=== PATIENT | male | born 1940 | race Caucasian/White ===

== ENCOUNTER → 2018-08-07 | Outpatient (REF) | payer MEDICARE, BC ==
[~2018-08-07] MED LIST: ALLOPURINOL300 MG PO; ATORVASTATIN CA40 MG PO; B-12500 MC1 PO; BABY ASPIRIN81 MG PO; BILBERRY PO; COQ-1010 MG PO; DOXAZOSIN4 M1 PO; FISH OIL1000 MG PO; GABAPENTIN800 MG PO; GLIPIZIDE10 M1 PO; LISINOPRIL5 MG PO; METFORMIN1000 MG PO; MULTIVITAM10 PO; NOVOLOG MIX100 U/ML SC; PLAVIX75 MG PO; RANITIDINE150 M1 PO; SAW PALMETTO80 MG PO; VITAMIN B6250 MG PO; VITAMIN D32000 UNIT PO; ZOCOR PO
[2018-08-07 09:38] LABS: URINE BILIRUBIN - DIPSTICK NEGATIVE (NEGATIVE); URINE BLOOD DIPSTICK NEGATIVE (NEGATIVE); URINE COLOR YELLOW; URINE GLUCOSE - DIPSTICK NEGATIVE (NEGATIVE); URINE KETONE NEGATIVE (NEGATIVE); URINE LEUK ESTERASE NEGATIVE (NEGATIVE); URINE NITRITE - DIPSTICK NEGATIVE (Negative); URINE PH 5.5 (4.5-8.0); URINE PROTEIN - DIPSTICK NEGATIVE (NEG-TRACE); URINE SPECIFIC GRAVITY 1.025; URINE UROBILINOGEN - DIPSTICK 0.2 E.U./dL (0.2)
[2018-08-07 09:43] LABS: HEMATOCRIT 30.5 % (39.0-50.0); HEMOGLOBIN 9.8 g/dl (14.0-18.0); MEAN CELL VOLUME 112.1 fL CALC (80.0-100.0); MEAN CORPUSCULAR HGB CONC 32.1 g/L CALC (32.0-36.0); RED BLOOD COUNT 2.72 mill/uL (4.70-6.10); RED CELL DISTRI WIDTH 15.1 % (11.5-15.5)
[2018-08-07 10:12] LABS: ALBUMIN 3.8 g/dL (3.2-5.0); ALKALINE PHOSPHATASE 71 u/l (38-126); ANION GAP 11 (6-22 (CALC)); BILIRUBIN, TOTAL 0.8 mg/dL (0.0-1.4); BUN 28 mg/dL (8-23); BUN/CREATININE RATIO 15 (12-20 (CALC)); CALCULATED LDLCHOLESTEROL 47 mg/dL (62-129 (CALC)); CARBON DIOXIDE 25 mmol/l (22-30); CHLORIDE 112 mmol/l (95-108); CHOLESTEROL HDL RATIO 2.5 (<4.4 (CALC)); CREATININE 1.9 mg/dL (0.7-1.3); GFR 34 ML/MIN (>=60 (CALC)); GFR FOR AFR.AMER. 42 ML/MIN (>=60 (CALC)); HDL CHOLESTEROL 46 mg/dL (>=40); POTASSIUM 4.8 mmol/l (3.5-5.1); SGOT/AST 28 u/l (19-48); SODIUM 143 mmol/l (137-146); TOTAL CHOLESTEROL 116 mg/dl (0-199); TOTAL PROTEIN 5.9 g/dL (6.3-8.2); TOTAL TRIGLYCERIDES 115 mg/dl (30-149); VLDL CHOLESTROL 23 mg/dl (0-38 (CALC))
== END | disposition home or self-care (01) ==
LOC: LAB 09:03
PROVIDERS: ATTEND Internal Medicine
DX: D53.1 Other megaloblastic anemias, not elsewhere classified (principal); E11.42 Type 2 diabetes mellitus with diabetic polyneuropathy; E78.2 Mixed hyperlipidemia; G62.0 Drug-induced polyneuropathy; I10 Essential (primary) hypertension; N18.3 Chronic kidney disease, stage 3 (moderate)

== ENCOUNTER 2020-05-22 14:06 | Inpatient (IN) | payer MEDICARE, BC ==
[~2020-05-22] VITALS: Ht 170.2 cm; Wt 83.0 kg
[~2020-05-22 14:06] MED LIST changes: +ALLOPURINOL100 MG PO; -ALLOPURINOL300 MG PO; -DOXAZOSIN4 M1 PO; +DOXAZOSIN8 M1 PO; +GABAPENTIN600 MG PO; -GABAPENTIN800 MG PO; -NOVOLOG MIX100 U/ML SC; +NOVOLOG100 UNIT/M SC
--- NOTE | 2020-05-22 14:10 | NUR ---
PATIENT TO ROOM VIA WHEELCHAIR AND PHYSICIAN NOTIFIED OF PATIENT STATUS
[2020-05-22 15:04] LABS: HEMATOCRIT 31.1 % (39.0-50.0); HEMOGLOBIN 10.3 g/dl (14.0-18.0); IMMATURE GRANULOCYTES 0.3 % (0.0-5.0); MEAN CELL VOLUME 105.4 fL CALC (80.0-100.0); MEAN CORPUSCULAR HGB 34.9 pG CALC (26.0-32.0); MEAN CORPUSCULAR HGB CONC 33.1 g/dL CAL (32.0-36.0); NEUT# 5.59 thou/uL (1.82-7.42); RED BLOOD COUNT 2.95 mill/uL (4.70-6.10)
--- NOTE | 2020-05-22 15:14 | NUR ---
EDGAR XRAY COMPLETED, PT RESTING VISITOR REMAINS AT BEDSIDE, IV INTACT
[2020-05-22 15:16] LABS: ACT PARTIAL THROMBO TIME 24.1 SECONDS (20.0-32.5); INTERNATIONAL NORMALIZED RATIO 1.1 RATIO (0.7-1.3); PROTHROMBIN TIME 10.9 SECONDS (9.0-12.5)
[2020-05-22 15:17] LABS: ALBUMIN 3.9 g/dL (3.2-5.0); CREATININE 2.3 mg/dL (0.7-1.3); POTASSIUM 4.4 mmol/l (3.5-5.1); TOTAL PROTEIN 6.9 g/dL (6.3-8.2)
[2020-05-22 15:32] LABS: BILIRUBIN, TOTAL 1.1 mg/dL (0.0-1.4)
[2020-05-22 15:47] LABS: TSH, 3RD GENERATION 1.05 uIU/mL (0.47 - 4.68)
--- NOTE | 2020-05-22 16:18 | NUR ---
PT AWARE OF NEED FOR URINE SPECIMEN AND PLANNED ADMISSION RELATED TO POSITIVE COVID ANTIGEN, NO COMPLAINTS OFFERED, NO S/S OF DISTRESS NOTED, CALL PÉREZ WITHIN REACH
[2020-05-22 16:27] LABS: C-REACTIVE PROTEIN 24.9 mg/dL (0-0.9)
--- NOTE | 2020-05-22 16:27 | NUR ---
URINAL PROVIDED FOR PT AWARE OF NEED FOR URINE SPECIMEN
--- NOTE | 2020-05-22 16:55 | NUR ---
REPORT CALLED TO RIGO PALUMBO
--- NOTE | 2020-05-22 16:57 | NUR ---
RECIEVED REPORT FROM ROMIE MCKEON
[2020-05-22 17:30] LABS: URINE BILIRUBIN - DIPSTICK NEGATIVE (NEGATIVE); URINE BLOOD DIPSTICK MODERATE (NEGATIVE); URINE COLOR YELLOW; URINE GLUCOSE - DIPSTICK NEGATIVE (NEGATIVE); URINE KETONE NEGATIVE (NEGATIVE); URINE LEUK ESTERASE NEGATIVE (NEGATIVE); URINE NITRITE - DIPSTICK NEGATIVE (Negative); URINE PROTEIN - DIPSTICK 30 mg/dL (NEG-TRACE); URINE UROBILINOGEN - DIPSTICK 0.2 E.U./dL (0.2)
[2020-05-22 17:35] LABS: URINE EPITHELIAL CELLS FEW EPI/hpf (0-FEW); URINE MUCUS MODERATE hpf (NONE-FEW)
--- NOTE | 2020-05-22 17:40 | NUR ---
PT ARRIVED TO [facility] ROOM 290 VIA PORTABLE IN STABLE CONDITION ACCOMPAINED BY ROMIE MCKEON. PT AMBULATED TO BED WITH STEADY GAIT. INTRODUCED SELF TO PT AND DISCUSSED POC. PT IS A/O X3 AND ABLE TO VOICE NEEDS. ASSESSMENT AND VITALS COMPLETED.TEMP 99.2, TYLENOL TO BE ADMINISTERED. BP 138/59, HR 78, O2 94% ON ROOM AIR. RESPIRATIONS AR EVEN AND UNLABORED . HEART RHYTHM NORMAL WITH TELE IN PLACE,SR PER ER MONITORING. BOWEL SOUNDS ACTIVE IN ALL QUADRANTS, LAST REPORTED BM 05/21/2020. PT REPORTS HAVING DIARREHA. RADIAL AND PEDAL PULSES STRONG. #22G IN LAC FLUSHED, SITE APPEARS HEALTHY AND PATENT. IVF STARTED PER ORDER. SKINS IS WARM DRY AND INACT WITH NO BREAKDOWN NOTED. PT DENIES ANY PAIN OR DISCOMFORTS AT THIS TIME. PT DENIES ALLERGIES, ALLERGY AND FALL RISK BAND APPLIED. PT STATES HE HAD A GOLD NECKLACE DOWN IN ER, NO NECKLACE PRESENT AT THIS TIME. ER CALLED AND ASSISTANT VICE PRESIDENT INFORMED THAT PT GAVE TO VISITOR DOWN IN ER ROOM. PT REMEMBERED. PT DENIES ANY ADDITIONAL NEEDS AT THIS TIME. ALL SAFETY PRECAUTIONS ARE IN PLACE WIHT CALL LIGHT IN REACH. ENCOURAGED PT TO CALL FOR ASSISTANCE. AIR/CONTACT PRECAUTIONS IN PLACE. WILL CONTINUE TO MONITOR
--- NOTE | 2020-05-22 17:42 | NUR ---
PT TRANSPORTED TO MED SURG VIA WHEELCHAIR, WITH ALL BELONGINGS SENT WITH PT. ACCEPTING NURSE DEEJAY AT BEDSIDE ON ARRIVAL
[2020-05-22 17:46] VITALS: BP 138/59
[2020-05-22 19:45] VITALS: BP 142/60
--- NOTE | 2020-05-22 20:05 | NUR ---
PHYSICAL ASSESMENT COMPLETE. PT CURRENTLY DENIES PAIN OR DISCOMFORT. SCHEDULED MEDICATIONS AND PRN MEDICATION ADMINISTERED, SEE E-MAR. PT DENIES ANY NEEDS AT THIS TIME. PLAN OF CARE REVIEWED, PT DENIES QUESTIONS, VERBALIZES UNDERSTANDING. ITEMS WITHIN REACH, BED LOCKED IN LOW POSITION W/ BEDRAILS UP X2. CALL PÉREZ WITHIN REACH, AGREES TO CALL PRN.
[2020-05-23] VITALS (22 sets, daily range): BP systolic 120–185; BP diastolic 56–121
--- NOTE | 2020-05-23 00:05 | NUR ---
PT LAYING IN BED WITH EYES CLOSED, APPEARS TO BE SLEEPING, APPEARS COMFORTABLE AND IN NO DISTRESS. RESPIRATIONS REGULAR AND UNLABORED. ITEMS REMAIN WITHIN REACH, CALL PÉREZ REMAINS WITHIN REACH. BED REMAINS LOCKED AND IN LOW POSITION WITH BEDRAILS UP X2. WILL CONTINUE TO MONITOR.
--- NOTE | 2020-05-23 00:25 | NUR ---
ED SENIOR MANAGER MERGERS & ACQUISITIONS REPORTS PTS HR RATE AT SINUS MACIE 32.
--- NOTE | 2020-05-23 02:21 | NUR ---
ED ENGINEERING MECHANIC REPORTS PTS HR HAS DROPPED TO SINUS MACIE 37. WOKE UP PT. PT STATE HE IS FINE.
--- NOTE | 2020-05-23 05:32 | NUR ---
PT RESTING IN BED, NO SIGNS OF DISTRESS NOTED, RESP EVEN AND UNLABORED. ED ORTHODONTIC BAND MAKER REPORT PT IS SINUS MACIE AT A RATE OF 38. VOICES NO NEEDS OR COMPLAINTS AT THIS TIME. CALL LIGHT IN REACH, CONTINUE TO MONITOR.
[2020-05-23 06:20] LABS: HEMATOCRIT 31.7 % (39.0-50.0); HEMOGLOBIN 10.6 g/dl (14.0-18.0); IMMATURE GRANULOCYTES 0.2 % (0.0-5.0); MEAN CELL VOLUME 104.6 fL CALC (80.0-100.0); MEAN CORPUSCULAR HGB CONC 33.4 g/dL CAL (32.0-36.0); NEUT# 3.5 thou/uL (1.82-7.42); RED BLOOD COUNT 3.03 mill/uL (4.70-6.10)
[2020-05-23 06:44] LABS: POTASSIUM 4.5 mmol/l (3.5-5.1)
[2020-05-23 06:45] LABS: D-DIMER 2.33 mg/L (0.19-0.60)
[2020-05-23 06:46] LABS: CREATININE 1.7 mg/dL (0.7-1.3); POTASSIUM 4.6 mmol/l (3.5-5.1)
[2020-05-23 06:47] LABS: TOTAL PROTEIN 5.5 g/dL (6.3-8.2)
--- NOTE | 2020-05-23 06:48 | NUR ---
PT CONTINUED TO MACIE DOWN TO A LOW OFA HR OF 29. CCALLED DR DANIEL AND GOT ORDERS FOE EKG, LAB DRAWS POTASSIUM AND MAG. GLUCOSE 279. EKG SHOWED SINUS MACIE HR 36. LABS PENDING. ORDER PER DR DANIEL TO TRANSFER TO ICU. PT TRANSFERED AT 0648.
--- NOTE | 2020-05-23 07:05 | NUR ---
report received from Harshal Echeverria RN; awaiting pt arrival
--- NOTE | 2020-05-23 07:28 | NUR ---
male pt received to ICU bed 2 via bed accompanied by Raoul Rowan LPN and Adalid Echeverria RN in stable condition; bedside update received; assessment completed at this time; pt alert and oriented; denies pain; no n/v noted; pt denies dizziness, faint feeling, chest pain; resp even and unlabored; lungs clear bilat; skin color wnl; ra; hr reg; strong pulses; no edema noted; sb 40s on monitor; abd soft/ distended with bs present; no bm noted per news writer; no urine to inspect at this time; #22 patent to lac with ivf/ zithromax infusing without complication; no redness or edema noted at site; plan of care/ am meds/ reasoning for transfer explained; call light within reach; will continue;
[2020-05-23 07:50] LABS: ACT PARTIAL THROMBO TIME 27.6 SECONDS (20.0-32.5)
--- NOTE | 2020-05-23 08:05 | NUR ---
awake in bed; no apparent distress noted; pt offers no complaints; sb 50s on monitor; iv intact and patent; call light within reach; will continue to monitor
--- NOTE | 2020-05-23 08:46 | NUR ---
Dr Mixon present at bedside to assess pt and discuss plan of care
--- NOTE | 2020-05-23 10:02 | NUR ---
awake on cell phone; no apparent distress noted; pt offers no complaints; iv intact and patent; no redness or edema noted at site; sr 55 on monitor; call light within reach; will continue to monitor
--- NOTE | 2020-05-23 12:00 | NUR ---
awake in bed; no apparent distress noted; resp even and unlabored; iv intact and patent; sb on monitor; call light within reach; will continue to monitor
--- NOTE | 2020-05-23 13:50 | NUR ---
call placed to Sallie Giordano as per request; passcode verified; update provided
--- NOTE | 2020-05-23 14:08 | NUR ---
sb 57 on monitor; no apparent distress noted; iv intact and patent; will continue to monitor
--- NOTE | 2020-05-23 15:40 | NUR ---
Dr Mixon notified of 21 beat vtach; pt asymptomatic; no orders received; k+ and mag reviewed; will continue to monitor
--- NOTE | 2020-05-23 16:15 | NUR ---
awake in bed; offers no complaints; no apparent distress; sb on monitor; iv intact and patent; no redness or edema noted at site; pt inquiring of long acting insulin; states he takes "Lantus 80 units at bedtime"; will notify ;
--- NOTE | 2020-05-23 17:51 | NUR ---
awake in bed; offers no complaints; sr on monitor; eating dinner; no distress noted; iv intact and patent; call light within reach
--- NOTE | 2020-05-23 20:00 | NUR ---
PT HAD JUST FINISHED DINNER AND IS WATCHING TV IN HIGH FOWLERS POSITION. PT HAS NO COMPLAINTS OF PAIN OR DISCOMFORT. HIS BP WAS SLIGHTLY ELEVATED 155/79 AND LOW HR 58, NURSED ASKED IS A NORMAL SITUATION FOR HIM HE STATED "NO NOT ANYMORE". NURSE ASKED SO THIS IS NOT THE FIRST TIME, "NO IT HASN'T HAPPENED IN A LONG TIME". REASSURED PT THAT WE WERE HERE TO HELP GET IT RESOLVED. ALSO EDUCATED HIM THAT IF WHILE HE IS SLEEPING HIS O2 SAT DROPS WE WOULD HAVE TO PUT SOME OXYGEN ON HIM WHILE HE WAS SLEEPING. PT VERBALIZED UNDERSTANDING.
--- NOTE | 2020-05-23 22:04 | NUR ---
PT RESTING IN BED TALKING ON HIS CELL PHONE. NO S/S OF DISTRESS. CALL LIGHT WITHIN REACH.
--- NOTE | 2020-05-23 23:03 | NUR ---
NOTIFIED DR. DANIEL THAT PT IS EXPERIENCING ELEVATED BP WITH REQUEST OF ANTI-HYPERTENSIVE PRN MEDICATION. PT IS EXPERIENCING SLIGHT SOB BUT DENIES ANY OTHER S/S OF DISTRESS. APPLIED MI AT FOR SUPPORTIVE MEASURES. AWAITING RESPONSE FROM
[2020-05-24] VITALS (22 sets, daily range): BP systolic 126–212; BP diastolic 58–84
--- NOTE | 2020-05-24 00:30 | NUR ---
PT RESTING IN BED WITHOUT S/S OF DISTRESS. ADMINISTERED NORVASC AND HYDRALAZINE PER DR. ORDER. WITHIN 15 MINS BP HAD DECREASED TO 160/69. PT TOLERATING 2L NC WELL O2 AT 95%, COMPARED TO WITHOUT HE WAS AT 88-92%. WILL CONTINUE TO MONITOR.
--- NOTE | 2020-05-24 02:10 | NUR ---
PT AWAKENED BY SEVERE ACID REFLUX/INDIGESTION. CONTACTED DR. DANIEL FOR MEDICATION. DR ASKED FOR TROPONINS AND ORDERED MYLANTA. TROP DRAWN WNL 0.030, AND MYLANTA ADMINISTERED. PT RESTING IN BED HAVING SOME DEEP COUGHING SPELLS. BP AND HR ELEVATED O2 88-90% INCREASED O2 TO 4L. EDUCATED TO TRY TO SLOW HIS BREATHING TO TAKE DEEPER BREATHS. NURSE ASKED IF PT WAS HAVING ANY PAIN IN CHEST, ARM, NECK OR SHOULDER HE DENIES. ONLY SAYS HE HAS HEARTBURN. WILL CONTINUE TO MONITOR.
--- NOTE | 2020-05-24 04:00 | NUR ---
PT WAS TRYING TO GET OUT OF BED, AGITATED THINKING TV WAS ON. HOWEVER HE KEEPS READING THE MUSEUM REGISTRAR ON THE WALL THINKING IT WAS THE TV. INCREASED CONFUSION, ASSESSED NEURO AND WAS WNL. BP WAS INCREASED AGAIN AND HR ELEVATED, CHECKED TEMP AND IT WAS 101.[address] DANIEL WAS NOTIFIED OF TEMP AND INCREASED AGITATION. ORDERED ATIVAN TO CALM HIM. CONTINUOUS REDIRECTION NEEDED. KEEPS TRYING TO TAKE PROBES, TELE, AND BP CUFF OFF AND GET OUT OF BED, HOWEVER IS A&O TO PERSON, PLACE, AND TIME.
[2020-05-24 05:12] LABS: HEMATOCRIT 30.1 % (39.0-50.0); HEMOGLOBIN 10.2 g/dl (14.0-18.0); IMMATURE GRANULOCYTES 1.1 % (0.0-5.0); MEAN CELL VOLUME 102.7 fL CALC (80.0-100.0); MEAN CORPUSCULAR HGB 34.8 pG CALC (26.0-32.0); MEAN CORPUSCULAR HGB CONC 33.9 g/dL CAL (32.0-36.0); NEUT# 8.44 thou/uL (1.82-7.42); RED BLOOD COUNT 2.93 mill/uL (4.70-6.10); RED CELL DISTRI WIDTH 13.6 % (11.5-15.5)
[2020-05-24 05:55] LABS: BILIRUBIN, TOTAL 0.7 mg/dL (0.0-1.4); POTASSIUM 4.3 mmol/l (3.5-5.1); TOTAL PROTEIN 5.4 g/dL (6.3-8.2)
--- NOTE | 2020-05-24 05:55 | NUR ---
PT RESTING AWAKE IN BED. CONFUSION INCREASING, THINKS HE IS IN [place] THIS MORNING AND WANTS TO GO GOLFING. REDIRECTED PT THAT HE WAS IN [place] AT HOSPITAL. ADMINISTERED ATIVAN SHORT TIME AGO TO RELAX PT. HE IS TIL TRYING TO PULL PROBES AND TELE OFF. NURSE EDUCATES PT THAT HE NEEDS TO LEAVE THESE ITEMS ON SO WE CAN MONITOR HIS HEART AND OXYGEN, STOPS FOR A MINUTE AND THEN TRIED AGAIN. WILL UPDATE MORNING STAFF OF SITUATION AND FORD CONTINUE TO MONITOR.
--- NOTE | 2020-05-24 07:20 | NUR ---
pt resting in bed with eyes closed; no apparent distress noted; easily aroused to verbal stimulation; assessment completed at this time; pt alert to person only; states he's on the side of the road; states the month as Jun,; denies pain; no n/v noted; resp even and unlabored; lungs clear/ diminished bases; skin color wnl; o2 per nc at 2L; sleeping car service attendant cough noted; hr reg; strong pulses; no edema noted; sr/pvc on monitor; abd soft with bs present; no bm noted per bond writer; no urine to inspect at this time; urinal at bedside; #22 to lac patent with ivf infusing without complication; no redness or edema noted at site; plan of care/ am meds/ covid prec explained; pt drowsy; bed alarm set for pt safety; call light within reach; will continue to monitor
--- NOTE | 2020-05-24 07:35 | NUR ---
alarm sounding; pt noted attempting to get out of bed; pt very confused; pt refusing to get back in bed; pt attempting to pull off monitoring attachments; pt stating "I need to get to the hospital"; reorientation unsuccessful; pt has pulled out iv to lac; catheter tip noted intact; #20 started x1 attempt to rh; staff remains at bedside for safety; o2 titrated to 3: o2 sat 88-89%; pt deny home o2 use; will continue to monitor
--- NOTE | 2020-05-24 08:04 | NUR ---
pt resting in bed with eyes closed; no apparent distress noted; sr on monitor; iv intact and patent; bed alarm activated for pt safety; call light within reach; will continue to monitor
--- NOTE | 2020-05-24 09:15 | NUR ---
alarm sounding; pt out of bed; very confused; pt has removed all monitoring attachments; iv intact and patent; lg urinary incont noted; am meds explained and admnistered with complication; pt declining breakfast; maew; follow commands; will continue to monitor
--- NOTE | 2020-05-24 09:52 | NUR ---
awake; bed alarming; pt on side of bed; large urinary incont noted; bed bath and linens changed; pt remins confused; iv intact and patent; monitoring attachments reapplied; bed alarm set for pt safety; will continue to monitor closely
--- NOTE | 2020-05-24 10:10 | NUR ---
Dr Mixon present at bedside to assess pt and discuss plan of care;
--- NOTE | 2020-05-24 12:01 | NUR ---
pt awake in bed; confusion continues (MD aware on rounds); event planner present at bedside to attempt to get pt to eat/ feed pt; iv intact and patent; no redness or edema noted at site; sr on monitor; call light within reach; will continue to monitor
--- NOTE | 2020-05-24 12:27 | NUR ---
awake; pt has removed all monitoring attachments and attempting to climb out of bed; o2 reapplied; iv intact and patent; staff at bedside to reposition; will continue to monitor
--- NOTE | 2020-05-24 12:50 | NUR ---
call placed to sister at [phone]; update provided; sister informed of confusion and need to place pt in restraints due to removing essential monitoring attachments and oxygen; agree with restraints; will continue to monitor
--- NOTE | 2020-05-24 12:55 | NUR ---
Dr Mixon notified of pt continuously removing o2 and monitoring attachment; pt continues to attempt to climb out of bed; orders received and on chart
--- NOTE | 2020-05-24 13:50 | NUR ---
awake climbing out of bed; continues to remove front desk monitor and o2; pt desats to 80s without o2; iv intact; medicated for agitation; will continue to monitor
--- NOTE | 2020-05-24 14:25 | NUR ---
son called this customs entry writer; able to verify birthdate; update provided;
--- NOTE | 2020-05-24 16:10 | NUR ---
awake in bed; pt has managed to removed right arm from restraints; pt has removed monitoring attachments and o2; o2 sat 85%; o2 reapplied at 3L nc; urinal offers; no noted incont of urine; complete bath and linens changed at this time; pt requesting to speak with Carolina; Carolina called from pt's cell phone as per request; update provided; underwriter mortgage loan offers to call Emma; pt declined for this underwriter mortgage loan to call her stating "she's way in [facility]"; repositioned for comfort; pt continues with confusion but staff able to reorient; sr on monitor; iv intact and patent; no redness or edema noted at site; will continue to monitor
--- NOTE | 2020-05-24 16:31 | NUR ---
call placed to Jaquelin Xie per this creative writer passcode verified; update provided; daughter Jaquelin angela pt is in restraints due to continous removal of o2; will continue to monitor
--- NOTE | 2020-05-24 17:13 | NUR ---
pt noted with both legs over the right side of bed; pt has removed pulse ox probe; repositioned in bed; po fluids provided; pt denies neesd for commode or urinal; iv intact; will continue to monitor
--- NOTE | 2020-05-24 17:50 | NUR ---
awake in bed; pt has pulled of pulse ox probe; restraints released for meal; o2 re-applied; denies bed for toileting; call light within reach; bed alarm set for pt safety
--- NOTE | 2020-05-24 19:45 | NUR ---
ASSESSMENT COMPLETED. PT. IS A/AO AT THIS TIME, BUT UNAWARE OF WHAT HOSPITAL HE IS IN; IV SITE PATENT AND ORDERED IVF INFUSING WELL. UPDATED ON POC. SR ON STREETCAR DISPATCHER;PT. HAD REMOVED OXYGEN AND SPO2 DOWN TO 87% ON RA AND REAPPLIED O2 AND INCREASED TO 91%. CALLED BEST FRIEND OF PT."PENNY" AND PT. SPEAKING WITH HER AT THIS TIME. RESTRAINTS IN PLACE DUE TO PT. REMOVED OXYGEN AND PULLING AT TUBING. CALL LIGHT IS IN REACH. WILL CONTINUE TO MONITOR.
--- NOTE | 2020-05-24 21:10 | NUR ---
RESTRAINTS REMOVED PT. IS A/A/O X3 AND AGREED TO NOT REMOVE CORDS/LINES AT THIS TIME AFTER POC EXPLAINED WELL NEED FOR OXYGEN; WILL CONTINUE TO MONITOR.
--- NOTE | 2020-05-24 22:16 | NUR ---
PT. IS SLIGHTLY AGGITATED AND RESTLESS; MEDICATED WITH ORDERED PRN ATIVAN; WILL REASSESS. BED ALARM ON FOR SAFETY PRECAUIONS. CALL LIGHT IS IN REACH.
--- NOTE | 2020-05-24 23:00 | NUR ---
SPOKE WITH SISTER,MARIA LUZ, AND UPDATED HER ON PT..
--- NOTE | 2020-05-24 23:27 | NUR ---
PT. HAD 11 BEAT RUN OF V-TACH AND IS ASYMPTOMATIC; DENIES CP.
[2020-05-25] VITALS (19 sets, daily range): BP systolic 103–179; BP diastolic 47–82
--- NOTE | 2020-05-25 00:26 | NUR ---
TEMP OF 100.3; MEDICATED WITH ORDERED PRN TYLENOL; WILL REASSESS; PT. DENIES FURTHER NEEDS. CALL LIGHT IS IN REACH. WILL CONTINUE TO MONITOR.
--- NOTE | 2020-05-25 01:40 | NUR ---
TEMP RECHECKED 100.1; PT. HAD REMOVED O2 WELL B/P CUFF AND RE-APPLIED; PT. RE-EDCUATED AGAIN ON NEED FOR LEAVING THOSE IN PLACE.
--- NOTE | 2020-05-25 03:15 | NUR ---
PT. HAD REMOVED HEART MONITOR,O2, WELL B/P CUFF; PT. REMINDED TO LAVE ALL TUBINGS AND OXYGEN IN PLACE; WILL NEED RE-INFORCEMENT; WILL CONTINUE TO MONITOR. TEMP 99.4; HR SR 63; WILLL CO NTINUE TO MONITOR. CALL LIGHT IS IN REACH. BED ALARM ON.
[2020-05-25 04:51] LABS: HEMATOCRIT 29.5 % (39.0-50.0); HEMOGLOBIN 10.1 g/dl (14.0-18.0); MEAN CELL VOLUME 102.8 fL CALC (80.0-100.0); MEAN CORPUSCULAR HGB 35.2 pG CALC (26.0-32.0); MEAN CORPUSCULAR HGB CONC 34.2 g/dL CAL (32.0-36.0); NEUT# 6.7 thou/uL (1.82-7.42); RED BLOOD COUNT 2.87 mill/uL (4.70-6.10)
--- NOTE | 2020-05-25 05:09 | NUR ---
PT. SLIGHTLY ANXIOUS AND REMOVED HEART MONITOR AND B/P CUFF; REAPPLIED; AND MEDICATED WITH ORDERED IV ATIVAN; WILL REASSESS. CLEANED OF AN INCONTINENCE OF URINE; ROSI CARE GIVEN AND NEW BRIEF APPLIED. BED ALARM ON. TEMP 98.9.
[2020-05-25 05:15] LABS: ALBUMIN 2.8 g/dL (3.2-5.0); BILIRUBIN, TOTAL 0.6 mg/dL (0.0-1.4); CREATININE 1.7 mg/dL (0.7-1.3); POTASSIUM 4.5 mmol/l (3.5-5.1); TOTAL PROTEIN 5.3 g/dL (6.3-8.2)
--- NOTE | 2020-05-25 07:20 | NUR ---
PT LAYING IN BED. A&O X3 (PT UNABLE TO STATE ).O2 VIA NC @3L WITH O2% 86-88%, O2 TITRATED TO 4L, O2 % SUSTAINING 92-93%. LOW GRADE TEMP 99.1, COVERS TAKEN OFF PATIENT. TRACE EDEMA NOTED TO BLE. PT DENIES ANY PAIN AT THIS TIME. BED ALARM IN PLACE FOR SAFETY. CALL LIGHT IN REACH. CONTINUE TO MONITOR.
--- NOTE | 2020-05-25 07:56 | NUR ---
DR ESCOBAR AND Adalid MOROCHO SURGICAL RN AT BEDSIDE DISCUSSING POC
--- NOTE | 2020-05-25 09:38 | NUR ---
TEMP 100.4, TYLENOL GIVEN. WILL REASSESS TEMP
--- NOTE | 2020-05-25 10:53 | NUR ---
PT LAYING IN BED. NO DISTRESS NOTED. TEMP REASSESSED, TEMP 98.0. PT CHANGED FOR INCONTINENCE. NO OTHER NEEDS AT THIS TIME. BED ALARM IN PLACE FOR SAFETY. CALL LIGHT IN REACH. CONTINUE TO MONITOR.
--- NOTE | 2020-05-25 11:27 | NUR ---
OFFICE OF DR HERNANDEZ NOTIFIED ABOUT PTS CARDIOLOGY CONSULT.
--- NOTE | 2020-05-25 12:54 | NUR ---
MOVED PT UP IN BED WITH THE ASSISTANCE OF JACKSON GRUBBS. O2 REAPPLIED. SET UP PT FOR LUNCH, ENCOURAGED PT TO EAT. OFFERED PT ASSISTANCE, PT REFUSED. CALL LIGHT IN REACH. BED ALARM PLACED FOR SAFETY. CALL LIGHT IN REACH. CONTINUE TO MONITOR.
--- NOTE | 2020-05-25 14:08 | NUR ---
PT ENCOURAGED TO CONSUME MEAL. PLACED IN HIGH FOWLERS POSITION, PT ATTEMPTING TO EAT LUNCH. CONTINUE TO MONITOR.
--- NOTE | 2020-05-25 16:22 | NUR ---
ASSISTED PT WITH URINAL. 250 ML OF CLEAR YELLOW URINE NOTED. PT PLACED IN HIGH FOWLERS POSITION. CALL LIGHT IN REACH, BED ALARM IN PLACE. CONTINUE TO MONITOR.
--- NOTE | 2020-05-25 18:30 | NUR ---
PT SITTING IN BED EATTING DINNER. CALL LIGHT IN REACH. BED ALARM PLACED FOR SAFETY. CONTINUE TO MONITOR.
--- NOTE | 2020-05-25 20:00 | NUR ---
REPORT GIVEN BY LYNNE. PATIENT IN BED WATCHING TV, ALERT AND ORIENTED. RESP EVEN AND UNLABORED, 4L VIA NC. SB ON TELE.IV INFUSING NS @ KVO. PLAN OF CARE DISCUSSED. PATIENT INFORMED TO CALL WITH ANY QUESTIONS OR CONCERNS. FALL AND SAFTEY PRECAUTIONS IN PLACE. HOURLY ROUNDING PERFORMED.
--- NOTE | 2020-05-25 22:00 | NUR ---
PATIENT IN BED WATCHING TV. NO S/S OF DISTRESS NOTED. FALL AND SAFTEY PRECAUTIONS IN PLACE.
[2020-05-26] VITALS (20 sets, daily range): BP systolic 118–165; BP diastolic 56–92
--- NOTE | 2020-05-26 | NUR ---
PATIENT IN BED WITH EYES CLOSED. RESP EVEN AND UNLABORED. NO S/S OF DISTRESS NOTED. FALL AND SAFTEY PRECAUTIONS IN PLACE.
--- NOTE | 2020-05-26 05:22 | NUR ---
PATIENT ATTEMPTING TO GET OUT OF BED, ALARMING SOUNDING. NURSING STAFF PERFORMED FULL LINEN CHANGE AND BED BATH. FALL AND SAFTEY PRECAUTIONS IN PLACE.
[2020-05-26 06:30] LABS: HEMOGLOBIN 11.1 g/dl (14.0-18.0); IMMATURE GRANULOCYTES 0.7 % (0.0-5.0); MEAN CELL VOLUME 104.1 fL CALC (80.0-100.0); MEAN CORPUSCULAR HGB CONC 33.6 g/dL CAL (32.0-36.0); NEUT# 8.11 thou/uL (1.82-7.42); RED BLOOD COUNT 3.17 mill/uL (4.70-6.10); RED CELL DISTRI WIDTH 14.2 % (11.5-15.5)
[2020-05-26 07:03] LABS: ALKALINE PHOSPHATASE 102 u/l (38-126); ANION GAP 10 (6-22 (CALC)); BILIRUBIN, TOTAL 0.6 mg/dL (0.0-1.4); BUN 42 mg/dL (8-23); BUN/CREATININE RATIO 24 (12-20 (CALC)); CARBON DIOXIDE 25 mmol/l (22-30); CHLORIDE 112 mmol/l (95-108); CREATININE 1.7 mg/dL (0.7-1.3); GFR 39 ML/MIN (>=60 (CALC)); GFR FOR AFR.AMER. 47 ML/MIN (>=60 (CALC)); POTASSIUM 4.7 mmol/l (3.5-5.1); SGOT/AST 366 u/l (19-48); SODIUM 142 mmol/l (137-146); TOTAL PROTEIN 5.5 g/dL (6.3-8.2)
--- NOTE | 2020-05-26 07:08 | NUR ---
PT SITTING IN BED WATCHING TV. A&O X3. NO DISTRESS NOTED. PT REPORTS TO BE FEELING WELL THIS MORNING. O2 VIA NC @4L IN PLACE WITH OXYGEN LEVEL SUSTAINING 90-93%. CLEAR BREATH SOUNDS UPON AUSCULATION WITH DIMINISHED BREATH SOUNDS AT LUNG BASES. URINAL AT BEDSIDE WITH 100 ML OF CLEAR YELLOW URINE NOTED. BROOD STATION MANAGER COUGH NOTED. TRACE EDEMA TO BILATERAL FEET. NO NEEDS AT THIS TIME. ASSESSMENT COMPLETED. DISCUSSED POC. CALL LIGHT IN REACH. CONTINUE TO MONITOR.
[2020-05-26 07:30] LABS: C-REACTIVE PROTEIN 17.1 mg/dL (0-0.9)
--- NOTE | 2020-05-26 07:37 | NUR ---
DR ESCOBAR AT BEDSIDE DISCUSSING POC
--- NOTE | 2020-05-26 08:00 | NUR ---
ECHO US CELL OPERATOR AT BEDSIDE FOR ECHOCARDIOGRAM
--- NOTE | 2020-05-26 11:21 | NUR ---
ASSISTED PT UP TO CHAIR, PT WEAK, TOLERATED TRANSFER WELL. O2 VIA NC @4L IN PLACE. PT ENCOURAGED TO PRESS CALL LIGHT WHEN WANTING TO GET UP. URINAL AND ESSENTIAL ITEMS PLACED AT THE SIDE OF THE CHAIR. CALL LIGHT WITHIN REACH. CONTINUE TO MONITOR.
--- NOTE | 2020-05-26 13:32 | NUR ---
PT SITTING IN CHAIR. NO DISTRESS NOTED. O2% SUSTAINING 95%. CALL LIGHT IN REACH. CONTINUE TO MONITOR.
--- NOTE | 2020-05-26 13:55 | NUR ---
PT ASSISTED BACK INTO BED. CALL LIGHT PLACED WITHIN REACH. CONTINUE TO MONITOR.
--- NOTE | 2020-05-26 20:02 | NUR ---
WRITTEN REPORT RECEIVED. ASSUMED PT CARE.
--- NOTE | 2020-05-26 21:01 | NUR ---
PT MEDICATED ORDERED. NO APPARENT DISTRESS NOTED. PT ALERT AND ORIENTED. DENIES ANY PAIN OR DISCOMFORT. 02 SAT 93% ON 4L/M VIA NC. DIABETIC SNACK PROVIDED. MONITORS IN PLACE. IV SITE APPEARS HEALTHY. NO CURRENT WANTS OR NEEDS. CALL LIGHT WITHIN REACH. WILL CONTINUE TO MONITOR.
--- NOTE | 2020-05-26 23:17 | NUR ---
PT C/O INDIGESTION, PRN MYLANTA ADMINISTERED. O2 SATS 88% ON 4L/M VIA NC. REPOSITIONED IN BED AND HOB ELEVATED. ENCOURAGED DEEP BREATHING AND USE OF IS. PT VERBALIZED UNDERSTANDING. SAT NOW UP TO 90%. PT DENIES ANY OTHER CURRENT WANTS OR NEEDS. CALL LIGHT WITHIN REACH. WILL CONTINUE TO MONITOR.
[2020-05-27] VITALS (13 sets, daily range): BP systolic 123–175; BP diastolic 58–84
--- NOTE | 2020-05-27 01:32 | NUR ---
O2 SATS DROPPED TO 80%-82% O2 INCREASED AND REPOSITIONED WITHOUT EFFECT. RT AT BEDSIDE. HIGHFLOW SLOWLY INCREASES WITHOUT MUCH IMPROVEMENT. ON 15L/M HIGH FLOW WITH SAT OF 92%. ENCOURAGED DEEP BREATHING EXERCISES. NO APPARENT DISTRESS NOTED. PT RESPIRATIONS EVEN AND UNLABORED. PT REMAINS ALERT AND ORIENTED. CALL LIGHT WITHIN REACH. MONITORS IN PLACE. WILL CONTINUE TO MONITOR.
--- NOTE | 2020-05-27 03:20 | NUR ---
PT RESTING IN BED WITH EYES CLOSED. NO APPARENT DISTRESS NOTED. REMAINS ON 15L HIGH FLOW SATING 96%. RESPIRATIONS EVEN AND UNLABORED. CALL LIGHT WITHIN REACH. MONITORS IN PLACE. WILL CONTINUE TO MONITOR.
--- NOTE | 2020-05-27 05:26 | NUR ---
BOX SEALING INSPECTOR IN ROOM TO OBTAIN LABS.
[2020-05-27 07:05] LABS: ALBUMIN 2.7 g/dL (3.2-5.0); BILIRUBIN, TOTAL 0.7 mg/dL (0.0-1.4); CREATININE 1.5 mg/dL (0.7-1.3)
--- NOTE | 2020-05-27 09:00 | NUR ---
PT SEEN AWAKE, ALERT, ORIENTED X 3, RESTS IN THE BED IN NO DISTRESS. LUNGS CLEAR BUT DIMINISHED THROUGHOUT, 15 LPM NC. PT SEEN BY DR DANIEL, LASIX DOSE PROVIDED PER ORDER. PT DENIES CP OR SOB.
[2020-05-27 10:18] LABS: HEMATOCRIT 33.6 % (39.0-50.0); MEAN CELL VOLUME 104.3 fL CALC (80.0-100.0); MEAN CORPUSCULAR HGB 34.2 pG CALC (26.0-32.0); MEAN CORPUSCULAR HGB CONC 32.7 g/dL CAL (32.0-36.0); NEUT# 7.57 thou/uL (1.82-7.42); RED BLOOD COUNT 3.22 mill/uL (4.70-6.10); RED CELL DISTRI WIDTH 14.1 % (11.5-15.5)
[2020-05-27 10:57] LABS: ALBUMIN 2.9 g/dL (3.2-5.0); BILIRUBIN, TOTAL 0.7 mg/dL (0.0-1.4); CREATININE 1.5 mg/dL (0.7-1.3); TOTAL PROTEIN 5.4 g/dL (6.3-8.2)
--- NOTE | 2020-05-27 12:41 | NUR ---
GOOD OUTPUT NOTED FROM LASIX. PT RESTS IN THE BED, NO DISTRESS, NO COMPLAINTS.
--- NOTE | 2020-05-27 16:06 | NUR ---
PT'S DAUGHTER CALLED, WAS ABLE TO SPEAK WITH PT. PT REMAINS BEFORE, NO CHANGE IN STATUS. OXYGEN WAS 15 LPM, NOW BACK DOWN TO 10 LPM WITH ACCEPTABLE SATS IN THE LOW 90s.
--- NOTE | 2020-05-27 19:00 | NUR ---
REPORT FROM HALIMA GRUBBS. ASSUMED PT CARE.
--- NOTE | 2020-05-27 20:02 | NUR ---
ASSESSMENT COMPLETE. PT ALERT AND ORIENTED. NO APPARENT DISTRESS NOTED. DENIES ANY PAIN OR DISCOMFORT. ON 10L/M VIA HIGHFLOW NC, O2 SAT 95. MONITORS IN PLACE. IV SITE APPEARS HEALTHY. NO CURRENT WANTS OR NEEDS. CALL LIGHT WITHIN REACH. WILL CONTINUE TO MONITOR.
--- NOTE | 2020-05-27 20:54 | NUR ---
RN ON SHIFT IN ROOM TO MEDICATE PT ORDERED. DIABETIC SNACK PROVIDED.
--- NOTE | 2020-05-27 23:22 | NUR ---
PT RESTING IN BED WITH EYES CLOSED. NO APPARENT DISTRESS NOTED. REMAINS ON 10L HIGH FLOW SATING 96%. RESPIRATIONS EVEN AND UNLABORED. CALL LIGHT WITHIN REACH. MONITORS IN PLACE. WILL CONTINUE TO MONITOR.
[2020-05-28] VITALS (10 sets, daily range): BP systolic 111–142; BP diastolic 58–80
--- NOTE | 2020-05-28 01:46 | NUR ---
PT RESTING IN BED WITH EYES CLOSED. NO APPARENT DISTRESS NOTED. RESPIRATIONS EVEN AND UNLABORED. MONITORS IN PLACE. 02 @ 10L/M VIA HIGHFLOW NC, SATS 93%. VSS. CALL LIGHT WITHIN REACH. WILL CONTINUE TO MONITOR.
--- NOTE | 2020-05-28 03:11 | NUR ---
PT RESTING IN BED WITH EYES CLOSED. NO APPARENT DISTRESS NOTED. RESPIRATIONS EVEN AND UNLABORED. MONITORS IN PLACE. 02 @ 10L/M VIA HIGHFLOW NC, SATS 96%. VSS. CALL LIGHT WITHIN REACH. WILL CONTINUE TO MONITOR.
[2020-05-28 05:19] LABS: HEMATOCRIT 33.3 % (39.0-50.0); HEMOGLOBIN 10.9 g/dl (14.0-18.0); IMMATURE GRANULOCYTES 1.4 % (0.0-5.0); MEAN CELL VOLUME 102.5 fL CALC (80.0-100.0); MEAN CORPUSCULAR HGB 33.5 pG CALC (26.0-32.0); MEAN CORPUSCULAR HGB CONC 32.7 g/dL CAL (32.0-36.0); NEUT# 7.38 thou/uL (1.82-7.42); RED BLOOD COUNT 3.25 mill/uL (4.70-6.10)
--- NOTE | 2020-05-28 05:35 | NUR ---
COMPLETE ASSISTED BED BATH AND LINEN CHANGE PROVIDED. PT SAT UP AT BEDSIDE AT THIS TIME. TOLERATED WELL. REPOSITIONED IN BED. MONITORS REPLACED. PT DENIES ANY CURRENT WANTS OR NEEDS. CALL LIGHT WITHIN REACH. WILL CONTINUE TO MONITOR.
[2020-05-28 05:47] LABS: ALBUMIN 2.8 g/dL (3.2-5.0); BILIRUBIN, TOTAL 0.7 mg/dL (0.0-1.4); C-REACTIVE PROTEIN 7.6 mg/dL (0-0.9); CREATININE 1.6 mg/dL (0.7-1.3); POTASSIUM 4.6 mmol/l (3.5-5.1); TOTAL PROTEIN 5.2 g/dL (6.3-8.2)
--- NOTE | 2020-05-28 08:48 | NUR ---
PT SITTING IN BED. O2 VIA NC @10L HIGH FLOW WITH O2 SUSTAINING 90-92%. PT DENIES ANY SOB OR PAIN AT THIS TIME. IS DEVICE AT BEDSIDE, PT DEMONSTRATES PROPER USE OF DEVICE. GOAL SET AT 2500ML, PT ACHIEVING 2000 ML X10 REPITITIONS. LUNG SOUNDS CLEAR/DIMINISHED. 300 ML OF CLEAR URINE NOTED IN URINAL. CALL LIGHT PLACED IN REACH. ASSESSMENT COMPLETED. DISCUSSED POC. CALL LIGHT IN REACH. CONTINUE TO MONITOR.
--- NOTE | 2020-05-28 09:37 | NUR ---
PT ASSISTED TO BSC. CALL LIGHT IN REACH. CONTINUE TO MONITOR.
--- NOTE | 2020-05-28 10:49 | NUR ---
[facility] AT BEDSIDE
--- NOTE | 2020-05-28 11:30 | NUR ---
PT SITTING IN RECLINER. NO DISTRESS NOTED. CALL LIGHT LEFT WITHIN REACH. CONTINUE TO MONITOR.
--- NOTE | 2020-05-28 17:15 | NUR ---
PT SITTING IN BED WATCHING TV. NO DISTRESS NOTED. CALL LIGHT IN REACH. CONTINUE TO MONITOR.
--- NOTE | 2020-05-28 19:02 | NUR ---
REPORT FROM SILVESTRE GRUBBS. ASSUMED PT CARE.
--- NOTE | 2020-05-28 20:13 | NUR ---
ASSESSMENT COMPLETE. PT ALERT AND ORIENTED. NO APPARENT DISTRESS NOTED. DENIES ANY PAIN OR DISCOMFORT. ON 10L/M VIA HIGHFLOW NC, O2 SAT 96. MONITORS IN PLACE. IV SITE APPEARS HEALTHY, DISCUSSED EXPIRATION DATE AND NEW SITE NEEDED PT VERBALIZED UNDERSTANDING. NO CURRENT WANTS OR NEEDS. CALL LIGHT WITHIN REACH. WILL CONTINUE TO MONITOR.
--- NOTE | 2020-05-28 22:50 | NUR ---
X1 ATTEMPT TO START NEW IV SITE AT THIS TIME WITH NO SUCCESS. WILL ATTEMPT TO HAVE ANOTHER NURSE TRY WHEN AVAILABLE. CURRENT IV SITE APPEARS HEALTHY AND FLUSHES WELL.
--- NOTE | 2020-05-28 23:14 | NUR ---
SISTER MARIA LUZ CALLED FOR UPDATE PASSCODE PROVIDED TO NURSE. UPDATE PROVIDED.
[2020-05-29] VITALS (14 sets, daily range): BP systolic 104–157; BP diastolic 52–71
--- NOTE | 2020-05-29 | NUR ---
PATIENT RESTING IN BED. PATIENT WITH NO SIGNS OF DISTRESS. PATIENT VITALS STABLE. PATIENTS BED ALARM ON. NO CHANGES TO NC. WILL CONTINUE TO MONITOR.
--- NOTE | 2020-05-29 00:03 | NUR ---
NEW IV SITE OBTAINED BY RN ON SHIFT X1 ATTEMPT. PT TOLERATED WELL. OLD IV SITE REMOVED WITH CATH INTACT.
--- NOTE | 2020-05-29 04:15 | NUR ---
PT FOUND OOB, PT REMOVING ALL MONITORS AND O2. ENCOURAGED PT TO GET BACK INTO BED AND REAPPLY O2 AND MONITOR, PT REFUSED AND INSISTED AMBULATING TO BATHROOM. PT AMBULATED WITH ASSISTANCE. PT VOIDED WITHOUT DIFFICULTY. SOB WITH EXERTION, RESPIRATIONS SHALLOW AND LABORED. ASSISTED PT BACK INTO BED, O2 AND MONITORS REAPPLIED. O2 SAT 85%, DEEP BREATHING ENCOURAGED. 02 INCREASED TO 12L/M VIA HIGHFLOW AT THIS TIME. BED ALARM SET FOR SAFETY AND CALL LIGHT WITHIN REACH. WILL CONTINUE TO MONITOR.
--- NOTE | 2020-05-29 06:25 | NUR ---
PT SATS MAINTAINING 95-96%. 02 TITRATED BACK DOWN TO 10L/M VIA HIGHFLOW NC. NO APPARENT DISTRESS NOTED. RESPIRATIONS EVEN AND UNLABORED. PT DENIES ANY PAIN OR DISCOMFORT. CALL LIGHT WITHIN REACH. WILL CONTINUE TO MONITOR.
--- NOTE | 2020-05-29 06:45 | NUR ---
REPORT RECEIVED FROM TIEN PALUMBO. CARE ASSUMED.
[2020-05-29 07:24] LABS: ALBUMIN 2.8 g/dL (3.2-5.0); BILIRUBIN, TOTAL 0.8 mg/dL (0.0-1.4); CREATININE 1.5 mg/dL (0.7-1.3); POTASSIUM 5.1 mmol/l (3.5-5.1); TOTAL PROTEIN 5.3 g/dL (6.3-8.2)
--- NOTE | 2020-05-29 07:30 | NUR ---
PT RESTING IN BED AWAKE. PT IS ALERT AND OREINTED X3. PT SCOOTED DOWN IN BED. O2 SATS NOTED TO BE 85-88% ON 15L HI URMILA NC. ASSISTED PT IN MOVING UP AND REPOSITIONING IN BED. SHIFT ASSESSMENT COMPLETED AT THIS TIME. IV PATENT X1. CALL LIGHT IN REACH. WILL CONTINUE TO MONITOR.
--- NOTE | 2020-05-29 08:02 | NUR ---
DR DANIEL AT BEDSIDE AT THIS TIME
--- NOTE | 2020-05-29 08:43 | NUR ---
RADIOLOGY AT BEDSIDE FOR PORTABLE CXR
--- NOTE | 2020-05-29 10:00 | NUR ---
PHYSICAL THERAPY AT BEDSIDE AT THIS TIME.
--- NOTE | 2020-05-29 11:43 | NUR ---
PT SET UP FOR NOON MEAL AT THIS TIME.
--- NOTE | 2020-05-29 11:58 | NUR ---
PT note Patient is able to get OOB to chair with CGA of 1. His vitals remained stable. He was able to march in place 20 reps with o2 and sats remained >90% Am Pac score is 14 indicating he would do well with home health
--- NOTE | 2020-05-29 12:21 | NUR ---
PT RESTING IN BED WATCHING TV. RESP ARE EVEN AND UNLABORED. NO DISTRESS NOTED. CALL LIGHT IN REACH. WILL CONTINUE TO MONITOR.
--- NOTE | 2020-05-29 15:14 | NUR ---
PATIENT LAYS IN [place]. RESTS WITH EYES CLOSED. NO ACUTE DISTRESS SHOWN. O2 100% ON 15 H FL H. NC, WILL START WEANING. CALL LIGHT WITHIN REACH.
--- NOTE | 2020-05-29 15:45 | NUR ---
PATIENT'S O2 WAS WEANED FROM 15 L/MIN TO 10 L/MIN SLOWLY, O2 SAT 96%. PATIENT IS AWAKE, WAS EXPLAINED O2 WEANING, NO ACUTE DISTRESS SHOWN. CALL LIGHT WITHIN REACH.
--- NOTE | 2020-05-29 16:35 | NUR ---
KRISTYN MAY IN ROOM TO OBTAIN ACCUCHECK.
--- NOTE | 2020-05-29 16:41 | NUR ---
PATIENT'S O2 SAT 88%, LAYS [place], DENIES SOB. O2 TITRATED TO 12 L/MIN, O2 SAT NOW 90%-91%. I.S. ENCOURAGED, ABLE TO REACH TO 1750.
--- NOTE | 2020-05-29 17:16 | NUR ---
2 UNITS OF INSULIN GIVEN. PATIENT TOLERATES WELL.
--- NOTE | 2020-05-29 19:54 | NUR ---
RECEIVED REPORT FROM AM NURSE. PATIENT CURRENTLY IN BED. PATIENT VITALS STABLE. PATIENT IN NO DISTRESS. WILL CONTINUE TO MONITOR.
--- NOTE | 2020-05-29 22:00 | NUR ---
BED BATH PROVIDED. PATIENT CONTINUES IN BED. VITALS STABLE. PATIENT USING URINAL. NO SIGNS OF DISTRESS. CONTINUES WITH HIGH FLOW NASAL CANNULA. WILL CONTINUE TO MONITOR. BED ALARM ON.
[2020-05-30] VITALS (11 sets, daily range): BP systolic 116–152; BP diastolic 59–99
--- NOTE | 2020-05-30 02:00 | NUR ---
PATIENT SLEEPING. PATIENT WITH NO SIGNS OF DISTRESS. AFEBRILE. VOIDING IN URINAL. WILL CONTINUE TO MONITOR.
--- NOTE | 2020-05-30 04:45 | NUR ---
REPORT RECEIVED FROM RISHABH GRUBBS. CARE ASSUMED.
--- NOTE | 2020-05-30 05:44 | NUR ---
PT RESTING IN BED WITH EYES CLOSED. RESP ARE EVEN AND UNLABORED. NO DISTRESS NOTED. CALL LIGHT IN REACH. WILL CONTINUE TO MONITOR.
[2020-05-30 05:48] LABS: HEMOGLOBIN 11.2 g/dl (14.0-18.0); IMMATURE GRANULOCYTES 2.7 % (0.0-5.0); MEAN CELL VOLUME 102.5 fL CALC (80.0-100.0); MEAN CORPUSCULAR HGB 34.8 pG CALC (26.0-32.0); MEAN CORPUSCULAR HGB CONC 33.9 g/dL CAL (32.0-36.0); NEUT# 10.93 thou/uL (1.82-7.42); RED BLOOD COUNT 3.22 mill/uL (4.70-6.10); RED CELL DISTRI WIDTH 13.6 % (11.5-15.5)
[2020-05-30 05:57] LABS: ALBUMIN 2.8 g/dL (3.2-5.0); BILIRUBIN, TOTAL 0.9 mg/dL (0.0-1.4); C-REACTIVE PROTEIN 4.5 mg/dL (0-0.9); CREATININE 1.4 mg/dL (0.7-1.3); POTASSIUM 4.6 mmol/l (3.5-5.1); TOTAL PROTEIN 5.4 g/dL (6.3-8.2)
--- NOTE | 2020-05-30 06:50 | NUR ---
PAIENT IS AWAKE, WAS JUST GIVEN A BED BATHE, HOB 30 DEGREES. NURSE ASSESSMENT PERFORMED. R-HAND 22 G IV INTACT, NS IV FLUIDS INFUSING AT 10 ML/HR. SB/SR ON TELEMETRY WITH 1ST DEGREE AV BLOCK. NON PRODUCTIVE COUGH. 175 ML OF URINE EMPTIED FROM URINAL. NO COMPLAINTS OR NEEDS AT THIS TIME. CALL LIGHT WITHIN REACH.
--- NOTE | 2020-05-30 07:41 | NUR ---
PATIENT SITS UP IN [place] IS EATING BREAKFAST AND KWATCHING TV. NO ACUTE DISTRESS SHOWN.
--- NOTE | 2020-05-30 08:50 | NUR ---
PATIENT TALKS ON THE PHONE. NO ACUTE DISTRES SHOWN.
--- NOTE | 2020-05-30 09:23 | NUR ---
PATIENT ABLE TO SWALLOW AM MEDS, NO ACUTE DISTRES SHOWN. O2 SAT 92% ON 12 L/MIN HIGH FLOW H.
--- NOTE | 2020-05-30 10:28 | NUR ---
PATIENT RESTS WITH EYES CLOSED. O2 SAT 97%.
--- NOTE | 2020-05-30 12:24 | NUR ---
PATIENT IS IN [place] EATS WITH NO DIFFICULTY, PATIENT REPORTS HE IS NOT HUNGRY, WAS ENCOURAGED TO EAT TO HELP HIM HEAL. CALL LIGHT WITHIN REACH.
--- NOTE | 2020-05-30 14:39 | NUR ---
PATIENT LAYS WITH HOB 30 DEGREES. RESTS WITH EYES CLOSED. ON 12 L/MIN HIGH FLOW, O2 SAT 98%. CALL LIGHT WITHIN REACH.
--- NOTE | 2020-05-30 16:02 | NUR ---
blood pressure cuff readjusted. patient in no acute distress, uses urinal. requests iced water, will provide.
--- NOTE | 2020-05-30 16:42 | NUR ---
3 UNITS OF INSULIN GIVEN PER BLOOD SUGAR, PATIENT TOLERATES WELL. NO ACUTE DISTRESS SHOWN, WATCHES TV. HIGH FLOW NC H WAS WEANED FROM 12 L/MIN TO 10 L/MIN. O2 SAT 96%. NO COMPLAINTS OR NEEDS AT THIS TIME. CALL LIGHT WITHIN REACH.
--- NOTE | 2020-05-30 18:22 | NUR ---
PATIENT LAYS IN [employer]. ASSISTED WITH CUTTING HIS CHICKEN. HE IS ABLE TO MIX SUGAR TO HIS ICED TEA. NO ACUTE DISTRESS SHOWN. DID SPILL WATER FROM HIS PITCHER, WAS CLEANED UP. NO NEEDS OR COMPLAINTS AT THIS TIME. CALL LIGHT WITHIN REACH.
--- NOTE | 2020-05-30 20:00 | NUR ---
PT RESTING IN BED AWAKE IN HIGH FOWLERS POSITION. NO COMPLAINT OF PAIN, SOB, AND URINAL WAS EMPTIED. PT ENCOURAGED TO USE INCENTIVE SPIROMETER AND DRINK PLENTY OF FLUIDS. PT VERBALIZED UNDERSTANDING. PT ASKED FOR A SNACK BEFORE HE GOES TO SLEEP. NURSE ACKNOWLEDGED AND EXPLAINED WOULD BE BACK IN ABOUT AN HOUR WITH IT. BELONGINGS AND CALL LIGHT WITHIN REACH. WILL CONTINUE TO MONITOR.
--- NOTE | 2020-05-30 22:00 | NUR ---
PT RESTING IN BED AWAKE WATCHING TV WITHOUT S/S OF DISCOMFORT. PT ASKED FOR ADJUSTMENT OF PILLOW AND LOWERED HOB SLIGHTLY, OTHERWISE CONTENT. WILL CONTINUE TO MONITOR.
--- NOTE | 2020-05-30 23:55 | NUR ---
PT RESTING ON RIGHT SIDE WITHOUT S/S DISCOMFORT. WILL CONTINUE TO MONITOR.
[2020-05-31 02:00] VITALS: BP 125/60
--- NOTE | 2020-05-31 02:00 | NUR ---
PT SLEEPING WITHOUT S/S OF DISTRESS, CURRENTLY ON LEFT SIDE.
--- NOTE | 2020-05-31 03:50 | NUR ---
PT RESTING IN SUPINE POSITION, HAS BEEN TURNING BACK AND FORTH THROUGHOUT THE NIGHT. DOES NOT COMPLAIN OF DISCOMFORT OR SOB. WILL CONTINUE TO MONITOR.
[2020-05-31 03:58] VITALS: BP 141/64
--- NOTE | 2020-05-31 04:04 | NUR ---
PT CONTINUES TO RESTING IN FOWLERS POSITION. DOES NOT SEEM TO BE IN DISCOMFORT. WILL CONTINUE TO MONITOR.
[2020-05-31 06:00] VITALS: BP 145/65
--- NOTE | 2020-05-31 06:00 | NUR ---
PT RESTING N BED WITH EYES OPEN, DENIES ANY DISCOMFORT OR SOB. EMPTIED URINAL AND ENCOURAGED TO DRINK FLUIDS. WILL CONTINUE TO MONITOR.
[2020-05-31 06:14] LABS: HEMOGLOBIN 11.3 g/dl (14.0-18.0); IMMATURE GRANULOCYTES 2.9 % (0.0-5.0); MEAN CORPUSCULAR HGB 34.2 pG CALC (26.0-32.0); MEAN CORPUSCULAR HGB CONC 33.2 g/dL CAL (32.0-36.0); NEUT# 12.76 thou/uL (1.82-7.42); RED BLOOD COUNT 3.3 mill/uL (4.70-6.10); RED CELL DISTRI WIDTH 13.7 % (11.5-15.5)
[2020-05-31 06:24] LABS: CREATININE 1.5 mg/dL (0.7-1.3); POTASSIUM 4.4 mmol/l (3.5-5.1)
--- NOTE | 2020-05-31 07:39 | NUR ---
PT SITTING IN BED EATING BREAKFAST. A&O X3. NO DISTRESS NOTED. O2 @10L HIGH FLOW IN PLACE. O2 % SUSTAINING 90-93%. NO OTHER NEEDS AT THIS. IS DEVICE AT BEDSIDE, PT DEMONSTRATING PROPER USE OF DEVICE. PT ACHIEVING 1500ML, GOAL SET AT 2000 ML. ASSESSMENT COMPLETED. DISCUSSED POC. CALL LIGHT IN REACH. CONTINUE TO MONITOR.
[2020-05-31 08:00] VITALS: BP 139/58
--- NOTE | 2020-05-31 12:00 | NUR ---
PT SLEEPING IN BED. NO DISTRESS NOTED. CONTINUE TO MONITOR.
--- NOTE | 2020-05-31 12:05 | NUR ---
PT SITTING IN BED EATING LUNCH. NO DISTRESS NOTED. CALL LIGHT IN REACH. CONTINUE TO MONITOR.
--- NOTE | 2020-05-31 15:17 | NUR ---
PT SITTING IN BED WATCHING TV. NO DISTRESS NOTED. O2 SUSTAINING 91-93% WITH O2 @10L HIGH FLOW. CALL LIGHT IN REACH. CONTINUE TO MONITOR.
[2020-05-31 16:00] VITALS: BP 128/60
[2020-05-31 20:00] VITALS: BP 147/65
--- NOTE | 2020-05-31 20:00 | NUR ---
PT RESTING IN BED IN HIGH FOWLERS POSITION, RECENTLY FINISHED CONSUMING DINNER. PT EDUCATED ON THE IMPORTANCE OF INCENTIVE SPIROMETER USE. PT DID PROPERLY USE EQUIPMENT WITH NURSE PRESENT. HELPED ADJUST PT IN BED TO BETTTER POSITION AND MOVED BP CUFF TO LEFT ARM FOR COMFORT. PT DENIES PAIN OR SOB, STATES HE IS FEELING A LITTLE BETTER THAN YESTERDAY.
--- NOTE | 2020-05-31 22:00 | NUR ---
PT RESTING IN BED IN HIGH FOWLERS POSITION. PT DID HAVE A PUDDING FOR SNACK AND WATER REFILLED. URINAL WAS EMPTIED AND WAS MEDICATED.
[2020-06-01] VITALS (12 sets, daily range): BP systolic 114–131; BP diastolic 58–80
--- NOTE | 2020-06-01 | NUR ---
PT RESTING IN BED WITH HOB IN HIGH FOWLERS, SEEMS TO BE SLEEPING. NO S/S OF DISCOMFORT.
--- NOTE | 2020-06-01 02:00 | NUR ---
PT REPOSITIONED IN SEMI FOWLERS POSITION AND WARM BLANKET WAS REQUESTED. NO COMPLAINTS OF DISCOMFORT.
--- NOTE | 2020-06-01 04:30 | NUR ---
PT IS SLEEPING WITHOUT SIGNS OF DISTRESS.
--- NOTE | 2020-06-01 05:59 | NUR ---
ROUNDED ON PT, NOTICED O2 WAS SLIGHTLY LOWER THAN USUAL. PT HAD NC SHIFTED WITH ONLY ONE NOSTRIL IN. ADJUSTED NC AND PT SATS BACK TO NORMAL RANGE. WILL CONTINUE TO MONITOR.
--- NOTE | 2020-06-01 06:45 | NUR ---
REPORT RECEIVED FROM Adalid YATES RN. CARE ASSUMED.
--- NOTE | 2020-06-01 07:00 | NUR ---
PT RESTING IN BED AWAKE. PT IS ALERT AND ORIENTED X3. SHIFT ASSESSMENT COMPLETED AT THIS TIME. IV PATENT X1. PATIENT ASSISTED UP TO CHAIR AT THIS TIME. PT TOLERATED WELL. O2 DECREASED TO 8L HIGH URMILA NC AT THIS TIME. PT DID DESAT WITH EXERTION BUT DID RECOVER WELL. CALL LIGHT IN REACH. WILL CONTINUE TO MONITOR.
--- NOTE | 2020-06-01 07:55 | NUR ---
DR CROWE AT BEDSIDE AT THIS TIME.
--- NOTE | 2020-06-01 08:02 | NUR ---
HOLD ON TRANSFER TO [facility] DUE TO OXYGEN REQUIREMENTS
--- NOTE | 2020-06-01 09:26 | NUR ---
PT WAS ASSISTED UP TO BSC BM UNSUCCESSFUL. PT ASSISTED BACK TO CHAIR AT THIS TIME. PT GIVEN MOM AND PRUNE JUICE. INSTRUCTED TO CALL FOR ASSISTANCE. CALL LIGHT IN REACH. WILL CONTINUE TO MONITOR.
--- NOTE | 2020-06-01 09:43 | NUR ---
PHYSICAL THERAPY AT [facility] AT THIS TIME.
--- NOTE | 2020-06-01 10:21 | NUR ---
Patient presents up in bedside chair Nursing staff tells me he has been extraordinarily weak. He is seen for seated ankle pumps, heel presses and chair pushups x 20 reps each. He maintained stable vital signs throughout exercises. He was limited by dyspnea. I spoke further with him about home with home health at discharge and this remains his plan. His Am Pac is 13 indicating he would need intervention if he were to go home in the near future. He actually would do well with short term rehab but insists on home with home health
--- NOTE | 2020-06-01 12:00 | NUR ---
[facility] RESP ARE EVEN AND UNLABORED. NO DISTRESS NOTED. CALL LIGHT IN REACH. WILL CONTINUE TO OMONITOR.
--- NOTE | 2020-06-01 13:51 | NUR ---
LINENS CHANGED. PT ASSISTED FROM CHAIR BACK TO BED TO REST. O2 TO 6L NC. PT O2 SATS >94%. NO DISTRESS NOTED. PT DOES HAVE DYSPNEA ON EXERTION AND WILL DESAT BUT QUICKLY RECOVERS.
--- NOTE | 2020-06-01 16:00 | NUR ---
PT RESTING IN BED AWKAE AND CONVERSING ON CELLPHONE. DAUGHTER CALLED AND REQUESTED AN UPDATE. UPDATE PROVIDED. VSS ON MONITOR. CALL LIGHT IN REACH. WILL CONTINUE TO MONTIOR.
--- NOTE | 2020-06-01 17:24 | NUR ---
DECREASED OXYGEN TO 4L NASAL CANNULA. PT O2 SATS 92%>
--- NOTE | 2020-06-01 18:26 | NUR ---
PT SITTING UP IN BED EATING DINNER. PT DID NOT WANT TO GET OOB FOR DINNER. RESP ARE EVEN AND UNLABORED. NO DISTRESS NTOED. WHILE EATING O2 SATS REMAINS >92% ON 4L. CALL YOLIE IN REACH. WILL CONTINUE TO JONES
--- NOTE | 2020-06-01 20:00 | NUR ---
PT RESTING IN BED AWAKE IN HIGH-FOWLERS POSITION, WITHOUT S/S OF DISCOMFORT. ASSESSMENT COMPLETE, PT MEDICATED, AND REFILLED REFRESHMENTS. BELONGINGS AND CALL LIGHT WITHIN REACH. BED IN LOWEST POSITION. O2 PROBE WAS REPLACED DUE TO IN ACCURATE READINGS.
[2020-06-01 20:27] LABS: IMMATURE GRANULOCYTES 1.6 % (0.0-5.0); MEAN CELL VOLUME 103.4 fL CALC (80.0-100.0); MEAN CORPUSCULAR HGB 34.5 pG CALC (26.0-32.0); MEAN CORPUSCULAR HGB CONC 33.3 g/dL CAL (32.0-36.0); NEUT# 14.16 thou/uL (1.82-7.42); RED BLOOD COUNT 3.19 mill/uL (4.70-6.10); RED CELL DISTRI WIDTH 13.7 % (11.5-15.5)
[2020-06-01 20:45] LABS: ALBUMIN 2.9 g/dL (3.2-5.0); BILIRUBIN, TOTAL 0.9 mg/dL (0.0-1.4); CREATININE 1.5 mg/dL (0.7-1.3); TOTAL PROTEIN 5.5 g/dL (6.3-8.2)
[2020-06-01 21:04] LABS: C-REACTIVE PROTEIN 6.4 mg/dL (0-0.9)
[2020-06-01 21:10] LABS: POTASSIUM 5.6 mmol/l (3.5-5.1)
--- NOTE | 2020-06-01 22:00 | NUR ---
PT RESTING IN BED AWAKE, WATCHING TV. NO S/S OF DISTRESS. WILL CONTINUE TO MONITOR.
--- NOTE | 2020-06-01 23:03 | NUR ---
PT'S SISTER MARIA LUZ CALLED TO SEE HOW PT WAS DOING. NURSE REPORTED NO PERTINENT INFORMATION, THERE WAS NO CHANGES RECENTLY. THAT HE WAS DOING WELL BUT STILL WEAK.
[2020-06-02] VITALS (17 sets, daily range): BP systolic 105–152; BP diastolic 53–91
--- NOTE | 2020-06-02 | NUR ---
PT SLEEPING WITHOUT S/S OF DISCOMFORT. WILL CONTINUE TO MONITOR.
--- NOTE | 2020-06-02 02:00 | NUR ---
PT SLEEPING ON RIGHT SIDE. NO SIGNS OF DISTRESS. O2 SATS DOING WELL ON 4L.
--- NOTE | 2020-06-02 04:00 | NUR ---
PT TURNED BACK TO SUPINE POSITION. NURSE HELPED ADJUST HIS PILLOW. NO COMPLAINT OF PAIN OR SOB.
--- NOTE | 2020-06-02 06:45 | NUR ---
REPORT RECEIVED FROM Adalid YATES RN. CARE ASSUMED.
--- NOTE | 2020-06-02 06:45 | NUR ---
REPORT RECIEVED FROM Adalid YATES RN. CARE ASSUMED.
--- NOTE | 2020-06-02 07:45 | NUR ---
PT RESTING IN BED AWAKE. PT IS ALERT AND ORIENTED X3. SHIFT ASSESSMENT COMPLETED AT THIS TIME. IV PATENT X1. PT ASSISTED UP TO CHAIR AT BEDSIDE FOR AM MEAL. [facility] WILL CONTINUE TO [facility]
--- NOTE | 2020-06-02 07:55 | NUR ---
DR DANIEL AT BEDSIDE AT THIS TIME.
[2020-06-02 08:44] LABS: BILIRUBIN, TOTAL 1.1 mg/dL (0.0-1.4); CREATININE 1.4 mg/dL (0.7-1.3); POTASSIUM 4.7 mmol/l (3.5-5.1); TOTAL PROTEIN 5.7 g/dL (6.3-8.2)
--- NOTE | 2020-06-02 08:45 | NUR ---
PT ASSISTED UP TO BSC FOR BM CALL LIGHT IN REACH. WILL CONTINUE TO MONTIOR.
--- NOTE | 2020-06-02 09:10 | NUR ---
PT ASSISTED BACK TO CHAIR AT BEDSIDE. PT HAD A [facility] FORMED . PT TOLERATED TRANSFER WELL.
--- NOTE | 2020-06-02 09:30 | NUR ---
PHYSICAL THERAPY AT BEDSIDE.
--- NOTE | 2020-06-02 12:06 | NUR ---
PT SITTING UP IN CHAIR EATING LUNCH. RESP ARE EVEN AND UNLABORED NO DISTRESS NOTED. CALL LIGHT IN REACH. WILL CONTINUE TO MONITOR.
--- NOTE | 2020-06-02 14:00 | NUR ---
PT SITTING UP IN CHAIR AT BEDSIDE WATCHING TV. RESP ARE EVEN AND UNLABORED. NO DISTRESS NOTED. CALL LIGHT IN REACH. WILL CONTINUE TO MONITOR.
--- NOTE | 2020-06-02 15:50 | NUR ---
PT SITTING UP IN CHAIR AT BEDSIDE. RESP ARE EVEN AND UNLABORED. NO DISTRESS NOTED. CALL LIGHT IN REACH. WILL CONTINUE TO MONITOR
--- NOTE | 2020-06-02 16:34 | NUR ---
PT ASSISTED BACK TO BED AT THIS TIME. PT DID WELL FOR TRANSFER. CALL LIGHT IN REACH. WILL CO NTINUE TO [facility].
--- NOTE | 2020-06-02 19:15 | NUR ---
REPORT GIVEN BY LYNNE. PATIENT IN BED WITH EYES OPEN WATCHING TV. RESP EVEN AND UNLABORED, OXYGEN IN PLACE. ALERT AND ORIENTED. NO S/S OF DSITRESS NOTED.IV SALINE LOCKED. FALL AND SAFTEY PRECAUTIONS IN PLACE. PATIENT INFORMED TO CALL WITH ANY QUESTIONS OR CONCERNS. PLAN OF CARE DISCUSSED.
--- NOTE | 2020-06-02 22:00 | NUR ---
PATIENT RESTING IN BED WATCHING TV. RESP EVEN AND UNLABORED. NO S/S OF DISTRESS NOTED. FALL AND SATEY PRECAUTIONS IN PLACE.
[2020-06-03] VITALS (16 sets, daily range): BP systolic 118–156; BP diastolic 58–75
--- NOTE | 2020-06-03 00:16 | NUR ---
PATIENT RESTING IN BED WITH EYES CLOSED. RESP EVEN AND UNLABORED. NO S/S OF DISTRESS NOTED. FALL AND SAFTEY PRECAUTIONS IN PLACE.
--- NOTE | 2020-06-03 01:53 | NUR ---
PATIENT ACCIDENTLY TOOK OFF HIS OXYGEN, DESAT INTO LOW 70%. OXYGEN PLACED BY ON PATIENT BY NURSE, SLOW TO RECOVER.
--- NOTE | 2020-06-03 04:24 | NUR ---
NEW IV STARTED DUE TO DATED SITE. D/C IV IN RIGHT HAND. STARTED 22 LEFT HAND. PATIENT PLACED ON NON-REBREATHER FACE MASK DUE TO HIM TAKING OFF HI-FLOW NC.
--- NOTE | 2020-06-03 05:19 | NUR ---
PATIENT O2 SATURATION ABOVE 90%, RT INFORMED. RT IN THE ROOM TALKING TO THE PATIENT ABOUT WEARING THE HI-FLOW NC VS. VENTI MASK. PATIENT HAS REQUESTED TO WEAR THE HI-FLOW NC AND HAS BEEN EDUCATED ABOUT THE IMPORTANCE OF KEEPING THE HI-FLOW NC IN PLACE.
--- NOTE | 2020-06-03 06:45 | NUR ---
REPORT RECEIVED FROM KARAN GRUBBS. CARE ASSUMED.
--- NOTE | 2020-06-03 06:51 | NUR ---
RT AT BEDSIDE FOR ABG
--- NOTE | 2020-06-03 06:52 | NUR ---
RADIOLOGY AT BEDSIDE FOR STAT CXR
--- NOTE | 2020-06-03 07:44 | NUR ---
LAB AT BEDSIDE AT THIS TIME
--- NOTE | 2020-06-03 08:33 | NUR ---
DR DANIEL AT BEDSIDE AT THIS TIME.
[2020-06-03 08:46] LABS: ALBUMIN 2.8 g/dL (3.2-5.0); BILIRUBIN, TOTAL 1.2 mg/dL (0.0-1.4); CREATININE 1.6 mg/dL (0.7-1.3); POTASSIUM 4.9 mmol/l (3.5-5.1); TOTAL PROTEIN 5.5 g/dL (6.3-8.2)
[2020-06-03 08:50] LABS: BASO% 0 % (0-3); EOS% 0 % (0-8); HEMATOCRIT 33.2 % (39.0-50.0); IMMATURE GRANULOCYTES 1.1 % (0.0-5.0); LYMPH% 4 % (15-41); MEAN CELL VOLUME 103.8 fL CALC (80.0-100.0); MEAN CORPUSCULAR HGB 34.4 pG CALC (26.0-32.0); MEAN CORPUSCULAR HGB CONC 33.1 g/dL CAL (32.0-36.0); MONO% 2 % (2-13); NEUT% 93 % (42-76); PLATELET COUNT 305 thou/uL (130-400); RED CELL DISTRI WIDTH 13.9 % (11.5-15.5)
--- NOTE | 2020-06-03 10:02 | NUR ---
pt resting in bed with eyes closed. resp are even and unlabored. no distress noted. call light in reach. will continue to montior
--- NOTE | 2020-06-03 10:26 | NUR ---
physical therapy at bedside at this time.
--- NOTE | 2020-06-03 11:20 | NUR ---
Patient had to be put back on 10L Patient is moving slowly. He has poor chest wall excursion. I sat him up on the edge of the bed and perfromed tapotment on the bases with DBE. He managed to cough up about 3 teaspoons of blood tinged brown thick sputum. I encouraged independent coughing every hour. I positioned the patietn prone following treatment with instructions to remain as long as possible unless his breathing became labored. Am Pac is 9 indicating he would do well in [facility].
--- NOTE | 2020-06-03 11:45 | NUR ---
PT IN PRONE POSITION AWAKE. PT TURNED TO SUPINE POSITION AND REPOSITIONED IN BED FOR LUNCH. PT EXPLAINED THAT PRONE POSITION IS BEST FOR HEALING. VSS ON MONITOR. CALL LIGHT IN REACH. WILL CONTINUE TO MONITOR
--- NOTE | 2020-06-03 14:00 | NUR ---
PT RESTING IN BED IN SEMI HIGH FOWLERS POSITIONS. RESP ARE EVEN AND UNLABORED. VSS ON MONITOR. NO DISTRESS NOTED. CALL LIGHT IN REACH. WILL CONTINUE TO MONITOR.
--- NOTE | 2020-06-03 15:36 | NUR ---
PT OBSERVED TO BE RESTING IN BED WITH O2 OFF AND O2 SATS 88% ON ROOM AIR. O2 PLACED ON PATIENT AND O2 DECREASED. PT WAS NON LABORED RESPIRATIONS.
--- NOTE | 2020-06-03 16:32 | NUR ---
REPORT RECEIVED FROM ROMIE BATISTA. SPO2 91% ON 4L VIA NC.
--- NOTE | 2020-06-03 17:04 | NUR ---
FAMILY CALLED FOR UPDATE; QUESTIONS ANSWERED TO SATISFACTION.
--- NOTE | 2020-06-03 17:29 | NUR ---
SPO2 DECREASED INTO LOW 80S; OXYGEN TITRATED UP TO 7L VIA NC; RESPIRATORY AT BEDSIDE. ACCUCHECK 88; DINNER DELIVERED AND PT SITTING UP IN BED TO EAT; ASSISTED WITH SET UP OF MEAL. VSS. AFEBRILE.
--- NOTE | 2020-06-03 19:55 | NUR ---
RESTING IN BED, WATCHING TV. RESP DYSPNEIC WITH EXERTION. O2 ON AT 7 L HFNC. O2 SAT 92% BREATH SOUNDS CLEAR IN UPPER LOBES, DIMINISHED IN LOWER LOBES. SARAH HESS IN , SITE BENIGN. CARDIAC MOITOR SHOWS SR 1 [address] DEGREE AVB. DISCUSSED PLAN OF CARE. DENIES NEEDS AT THIS TIME. CALL PÉREZ IN REACH.
--- NOTE | 2020-06-03 21:00 | NUR ---
PARTIAL LINEN CHANGE AND PULLED UP IN BED WITH 2 ASSISTS. HS ACCUC CHECK 145, NO SS COVERAGE REQUIRED, GIVEN SCHEDULED DOSE OF LEVEMIR. PROVIDED WITH HS SNACK OF PUDDING, NUTRI GRAIN BAR AND APPLE JUICE. NO COMPLAINTS VOICED.
--- NOTE | 2020-06-03 22:00 | NUR ---
WATCHNG TV. VSS.
--- NOTE | 2020-06-03 23:48 | NUR ---
RESTING WITH EYES CLSOED. RESP NON-LABORED AT REST. O2 SAT 92%
[2020-06-04] VITALS (10 sets, daily range): BP systolic 120–130; BP diastolic 61–72
--- NOTE | 2020-06-04 02:00 | NUR ---
NO CHANGES TO REPORT. RESTING QUIETLY.
--- NOTE | 2020-06-04 04:00 | NUR ---
PATIENT HAS SLEPT WELL TONIGHT. VSS. SR WITH 1 ST DEGREE AVB ON MONITOR. O2 SAT 90%
--- NOTE | 2020-06-04 06:00 | NUR ---
AWAKE ON ROUNDS. NO COMPLAINTS VOICED. VSS. SR WITH 1 ST DEGREE AVB.
--- NOTE | 2020-06-04 07:30 | NUR ---
pt awake in bed; no apparent distress noted; pt offers no complaints; assessment completed at this time; pt alert and oriented; denies pain; no n/v noted; resp even and unlabored; lungs clear/ diminished; skin color wnl; o2 per hi jose nc 7L; loose prod cough; pt state sputum blackish/ no sputum to observe per this database report writer; hr reg; strong pulses; no edema noted; sr on monitor; abd soft/ distended with bs present; no bm noted per database report writer; pt requesting prune juice/ states last bm 3 days ago; prune juice provided; no urine to inspect at this time; urinal at bedside; #22 flushed and patent to ; no redness or edema noted at site; plan of care/ am meds explained; pt agree with this database report writer to get up to chair this am; call light within reach; will continue to monitor
--- NOTE | 2020-06-04 07:45 | NUR ---
pt up to chair x1 assit for breakfast; o2 per nc; sob on exertion; call light within reach
--- NOTE | 2020-06-04 08:31 | NUR ---
face sheet faxed to [facility]
--- NOTE | 2020-06-04 08:45 | NUR ---
KATHERINE Lorenzana called per writer producer; information provided; [facility] will have to check with leadership d/t covid units at near capacity; will await return call
--- NOTE | 2020-06-04 08:53 | NUR ---
PT Sridhar present at bedside for treatment
--- NOTE | 2020-06-04 09:00 | NUR ---
Patient is seen for assist with adl this morning as well as chest PT for deep breathing, forced expiration and coughing. He had moderateamount of clear secretions today. he is transferring with mod assist of 1. He maintained o2 sats around 85% Still very weak and no real change on Chest x ray Am pac is 11
--- NOTE | 2020-06-04 10:00 | NUR ---
up to bsc; no apparent distress noted; pt offers no complaints; iv intact and patent; sr on monitor; o2 per nc; pt noted with moderate formed stool; pericare per this jingle writer; assisted back to bed; hob elevated; call light within reach; will continue to monitor
--- NOTE | 2020-06-04 10:50 | NUR ---
[facility] called per typewriter operator automatic for update in regards to transfer; per Harriett, pt will be able to transfer once critical care cafeteria manager is available to take report from Dr Mixon; awaiting return call
--- NOTE | 2020-06-04 12:00 | NUR ---
awake in bed eating lunch; no apparent distress noted; pt offers no complaints; o2 per nc at 6L; o2 sat 94%; iv intact and patent; abt infusing without complication; urinal at bedside; sr on monitor; call light within reach; will continue to monitor
--- NOTE | 2020-06-04 12:10 | NUR ---
daughter Hilda called this investment underwriter; passcode verified; update provided including pending transfer
--- NOTE | 2020-06-04 14:00 | NUR ---
resting in bed with eyes closed; no apparent distress noted; sr on monitor; iv intact; o2 per nc at 6L; will conitnue to monitor
--- NOTE | 2020-06-04 15:18 | NUR ---
[facility] Harriett called per chief underwriter for update on transfer; carmelita Matthews; awaiting covid bed
--- NOTE | 2020-06-04 16:10 | NUR ---
resting in bed with eyes closed; no apparent distress noted; sr on monitor; iv intact; o2 per nc at 6L; o2 sat 96%; call light within reach; will continue to monitor
--- NOTE | 2020-06-04 16:15 | NUR ---
received call from KATHERINE Lorenzana; pt to transfer to [facility] [address]; report to be called to [phone]
--- NOTE | 2020-06-04 16:40 | NUR ---
[facility] called per science writer; information provided; ETA 30 min
--- NOTE | 2020-06-04 16:46 | NUR ---
daughter Hilda called per this lyric writer; informed pt to transfer to [facility]; room provided as well as hospital phone #
--- NOTE | 2020-06-04 17:28 | NUR ---
report given to [facility] transport; pt discharged via stretcher with o2 in stable condition; pt belongings sent with pt
--- NOTE | 2020-06-04 17:32 | NUR ---
report called to [facility]ATHER[facility] Guzman; direct # provided if additional information is needed
== END 2020-06-04 17:28 | disposition short-term general hospital (02) | DRG 177 ==
LOC: ED 14:06 → ED-I 14:24 → ED 14:24 → ED-I 15:51 → ED 16:16 → MS2 16:17 → ICU 05-23 07:15
PROVIDERS: Internal Medicine; Nurse Practitioner Family; ADMIT Internal Medicine; ATTEND Internal Medicine
PROC: XW033E5 Introduction of Remdesivir Anti-infective into Peripheral Vein, Percutaneous Approach, New Technology Group 5 (ICD-10-PCS; principal; 2020-05-24)
DX: U07.1 COVID-19 (principal); J12.89 Other viral pneumonia; J96.01 Acute respiratory failure with hypoxia; N17.9 Acute kidney failure, unspecified; I47.2 Ventricular tachycardia; R00.1 Bradycardia, unspecified; I44.0 Atrioventricular block, first degree; E86.0 Dehydration; R94.5 Abnormal results of liver function studies; I25.10 Atherosclerotic heart disease of native coronary artery without angina pectoris; I12.9 Hypertensive chronic kidney disease with stage 1 through stage 4 chronic kidney disease, or unspecified chronic kidney disease; E11.22 Type 2 diabetes mellitus with diabetic chronic kidney disease; N18.9 Chronic kidney disease, unspecified; E78.5 Hyperlipidemia, unspecified; E11.40 Type 2 diabetes mellitus with diabetic neuropathy, unspecified; D64.9 Anemia, unspecified; R53.1 Weakness; M10.9 Gout, unspecified; R32 Unspecified urinary incontinence; M19.90 Unspecified osteoarthritis, unspecified site; Z79.01 Long term (current) use of anticoagulants; Z79.4 Long term (current) use of insulin; Z79.899 Other long term (current) drug therapy; Z98.1 Arthrodesis status; Z96.653 Presence of artificial knee joint, bilateral; Z85.038 Personal history of other malignant neoplasm of large intestine; Z87.891 Personal history of nicotine dependence
CPT/HCPCS: G0378; J1644; J1650; J2060; J3370